=== PATIENT | male | born 1945 | race Caucasian/White ===

== ENCOUNTER 2021-04-11 07:11 | Day surgery (SDC) | payer OTHER ==
[2021-03-28 11:47] LABS: BASOPHILS % (AUTO) 0.9 % (0.0-5.0); EOSINOPHILS % (AUTO) 3.8 % (0.0-8.0); HEMATOCRIT 48.5 % (42-54); LYMPHOCYTES % (AUTO) 23.4 % (21.0-51.0); MEAN CORPUSCULAR HGB CONC 32.8 g/dL (32.0-36.0); MEAN CORPUSCULAR VOLUME 94.5 fL (79-99); MONOCYTES % (AUTO) 8.4 % (3.0-13.0); NEUTROPHILS % (AUTO) 63.4 % (40.0-77.0); PLATELET COUNT (AUTO) 258 K/uL (130-400); RED BLOOD CELL COUNT(AUTO) 5.13 MIL/uL (4.50-6.20); RED CELL DISTRIBUTION WIDTH 13.7 % (11.0-15.5); WHITE BLOOD COUNT (AUTO) 8.1 K/uL (4.8-10.8)
[2021-03-28 13:27] LABS: INR 1.03 (0.85-1.15); PROTHROMBIN TIME 11.2 SEC (9.6-11.6)
[2021-03-28 13:28] LABS: PARTIAL THROMBOPLASTIN TIME 27.6 SEC (26.3-35.5)
[2021-04-10 13:27] VITALS: BP 141/70
[~2021-04-11] VITALS: Ht 165.1 cm; Wt 58.3 kg
[~2021-04-11 07:11] MED LIST: ASPI-1197 PO; CEFAZOLIN SODIUM 1 GM VIAL IVP SCH
[2021-04-11 07:48] VITALS: BP 133/66
[2021-04-11] MEDS ORDERED: LACTATED RINGERS 1000ML 1,000 ML IV ONE (08:17)
== END 2021-04-11 11:00 | disposition home or self-care (01) ==
LOC: DAH 07:11
PROVIDERS: ATTEND Otolaryngology Plastic Surgery within the Head & Neck
DX: C44.42 Squamous cell carcinoma of skin of scalp and neck (principal); Z20.822 Contact with and (suspected) exposure to COVID-19; C44.310 Basal cell carcinoma of skin of unspecified parts of face; C44.311 Basal cell carcinoma of skin of nose; Z79.01 Long term (current) use of anticoagulants; Z53.8 Procedure and treatment not carried out for other reasons
CPT/HCPCS: 36415; 85025; 85610; 85730; 87635; 93005; A4215; A4221; A4222; A4223; A4663; C9803; J0690; J7120

== ENCOUNTER → 2023-12-24 | Outpatient (CLI) | payer OTHER ==
[~2023-12-24] MED LIST changes: -CEFAZOLIN SODIUM 1 GM VIAL IVP SCH; +IOHEXOL 350 MG/ML 100ML INFUS..BTL IV ONE
== END | disposition home or self-care (01) ==
LOC: RAH 08:40
PROVIDERS: ATTEND Internal Medicine Cardiovascular Disease
DX: I71.40 Abdominal aortic aneurysm, without rupture, unspecified (principal); N43.2 Other hydrocele; K57.32 Diverticulitis of large intestine without perforation or abscess without bleeding; I70.0 Atherosclerosis of aorta
CPT/HCPCS: 74174; Q9967

== ENCOUNTER → 2024-06-02 | Outpatient (CLI) | payer OTHER ==
[~2024-06-02] MED LIST changes: +AMLO-257 PO; +CLOP-31 PO; -IOHEXOL 350 MG/ML 100ML INFUS..BTL IV ONE
== END | disposition home or self-care (01) ==
LOC: SHCH 09:33
PROVIDERS: ATTEND Internal Medicine Cardiovascular Disease
DX: I87.2 Venous insufficiency (chronic) (peripheral) (principal); I87.1 Compression of vein; I73.9 Peripheral vascular disease, unspecified
CPT/HCPCS: 93970

== ENCOUNTER 2025-07-13 05:33 | Observation (INO) | payer OTHER ==
[~2025-07-13] VITALS: Ht 162.6 cm; Wt 63.5 kg
--- NOTE | 2025-07-13 05:54 | NUR ---
BLADDER SCANNER READING >830CC, ED MADE AWARE
--- NOTE | 2025-07-13 06:12 | ERN ---
ED Note History of Present Illness Stated Complaint: C/O URINARY RETENTION WITH CONSTIPATION X 24 HRS Chief Complaint: Urinary Retention Time Seen by MD: 05:38 Dictation: Patient is 80-year-old male who presented to the ER complaining of constipation, urinary retention. He stated that he has been constipated for few days, he last normal bowel movement was 4 days ago, he had been having urinary retention as though in the last 4 days, but it has got worse last night. On initial workup in the ER, ultrasound of bladder was positive for urinary retention more than 400 cc. Allergies: Coded Allergies: tetracycline (Verified Allergy, Unknown, 03/28/21) Home Meds Active Scripts Tamsulosin HCl (Flomax) 0.4 Mg Cap.er.24h, 1 CAP PO DAILY for 10 Days, #10 CAP 0 Refills Prov:FREDA BERMUDEZ MD 07/13/25 Amlodipine Besylate (Amlodipine Besylate) 5 Mg Tablet, 5 MG PO DAILY for 30 Days, #30 TAB 1 Refill Prov:LANCE CATHERINE MD 02/23/24 Amlodipine Besylate (Amlodipine Besylate) 5 Mg Tablet, 5 MG PO DAILY for 30 Days, #30 TAB 1 Refill Prov:LANCE CATHERINE MD 02/23/24 Clopidogrel Bisulfate (Plavix) 75 Mg Tablet, 75 MG PO DAILY for 30 Days, #30 TAB 1 Refill Prov:LANCE CATHERINE MD 02/23/24 Reported Medications Aspirin (Aspirin) 81 Mg Tab.chew, 81 MG PO DAILY, TAB.CHEW 04/10/21 Past Medical History Past Medical History: Other Additional Past Medical Hx: PROSTATE PROBLEM Surgical History: Unknown Surgical History Other: X1 STENT RLE Review of System Dictation NEGATIVE EXCEPT PER HPI Constitutional: Negative for fever,chills, and weight loss Eyes: Negative for injury, pain,redness, and discharge ENT: Negative for injury,pain or swelling Cardiovascular: denies chest pain, palpitations, and edema Respiratory: Negative for shortness of breath, cough, and wheezing, Abdomen/GI: Negative for abdominal pain, nausea, vomiting. He does reports constipation Back: Negative for injury and pain : Negative for injury, bleeding and discharge during his also reports urinary retention MS/Extremity: Negative for injury and deformity Skin: Negative for rash, and discoloration Neuro: Negative for headache, weakness, numbness, tingling, and seizure Psych: Negative for suicide ideation, homicidal ideation, and hallucinations Initial Vital Sign VS Vital Signs Date Time Temp Pulse Resp B/P (MAP) Pulse Ox O2 Delivery O2 Flow Rate FiO2 07/13/25 05:35 97.5 101 20 186/88 95 Room Air 07/13/25 05:52 0 21 Physical Exam Dictation General: awake, alert, NAD Head/Face: Normocephalic, atraumatic Eyes: PERRL, EOMI, vision at baseline ENT: oral cavity clear, TMs clear, no signs of infection Neck: Trachea midline, supple, no nuchal rigidity Cardiovascular: RRR, normal S1/S2, No MRGs, no JVD Respiratory: CTAB, no respiratory distress, No rales or wheezes Abdomen: No tender, Skin: Warm, dry, normal turgor, no rash MS/Extremity: Pulses equal, no cyanosis, neurovascular intact, FROM Neuro: COAx4, GCS 15, strength 5/5, CN 2-12 intact, normal cerebellar exam, normal gait, Psych: Normal behavior, mood, and affect normal Results (Laboratory/Radiology) Laboratory/Radiology Laboratory Tests Test 07/13/25 05:58 07/13/25 06:09 Urine Color YELLOW (YELLOW) Urine Appearance CLEAR (CLEAR) Urine pH 5.0 (5.0-8.0) Urine Specific [place] 1.021 (1.001-1.031) Urine Protein NEGATIVE mg/dL (NEGATIVE) Urine Glucose (UA) NEGATIVE mg/dL (NEGATIVE) Urine Ketones 10 mg/dL (NEGATIVE) H Urine Occult Blood NEGATIVE (NEGATIVE) Urine Nitrate NEGATIVE (NEGATIVE) Urine Bilirubin NEGATIVE mg/dL (NEGATIVE) Urine Urobilinogen 0.2 mg/dL (0.2-1.0) Urine Leukocyte Esterase NEGATIVE Tatiana/uL Urine RBC 2-5 /HPF (0-1) H Urine WBC 0-1 /HPF (0-1) Urine Bacteria RARE /HPF (None Seen) White Blood Count 9.3 K/uL (4.8-10.8) Red Blood Count 4.75 MIL/uL (4.50-6.20) Hemoglobin 14.8 g/dL (14.0-18.0) Hematocrit 44.7 % (42-54) Mean Corpuscular Volume 94.1 fL (79-99) Mean Corpuscular Hemoglobin 31.2 pg (27.0-33.0) Mean Corpuscular Hemoglobin Concent 33.1 g/dL (32.0-36.0) Red Cell Distribution Width 13.9 % (11.0-15.5) Platelet Count 240 K/uL (130-400) Mean Platelet Volume 10.6 fL (7.5-10.5) H Immature Granulocyte % (Auto) 0.4 % (0-1) Neutrophils (%) (Auto) 86.7 % (40.0-77.0) H Lymphocytes (%) (Auto) 7.0 % (21.0-51.0) L Monocytes (%) (Auto) 5.5 % (3.0-13.0) Eosinophils (%) (Auto) 0.1 % (0.0-8.0) Basophils (%) (Auto) 0.3 % (0.0-5.0) Neutrophils # (Auto) 8.1 K/uL (1.8-7.7) H Lymphocytes # (Auto) 0.7 K/uL (1.0-4.8) L Monocytes # (Auto) 0.5 K/uL (0.1-1.0) Eosinophils # (Auto) 0.01 K/uL (0.00-0.70) Basophils # (Auto) 0.03 K/uL (0.00-0.20) Absolute Immature Granulocyte (auto 0.04 K/uL (0-1) Nucleated Red Blood Cells 0.0 % (0.0-0.19) White Cell Morphology Comment See comments Sodium Level 141 mmol/L (136-145) Potassium Level 4.6 mmol/L (3.5-5.1) Chloride Level 102 mmol/L (101-111) Carbon Dioxide Level 31 mmol/L (21-32) Blood Urea Nitrogen 23 mg/dL (7-18) H Creatinine 0.9 mg/dL (0.5-1.3) Glomerular Filtration Rate Calc 85 mL/min (>90) Random Glucose 109 mg/dL (70-105) H Total Calcium 9.6 mg/dL (8.5-10.1) Labs Reviewed?: Yes ED Course ED Course Orders Procedure Category Date Status Time Nurse Driven Riley HE 07/13/25 In Process Removal Pro 05:53 Urinalysis Profile LAB 07/13/25 Complete Catherized 05:53 Basic Metabolic Panel LAB 07/13/25 Complete 05:54 Abd 1vw RAD 07/13/25 Resulted 05:54 Cbc With Differential LAB 07/13/25 Complete 05:55 [place] Enema(0500, CPOE 07/13/25 Transmitted 2100) 06:58 Vital Signs Date Time Temp Pulse Resp B/P (MAP) Pulse Ox O2 Delivery O2 Flow Rate FiO2 07/13/25 07:56 98.1 87 16 148/68 97 Room Air* 0 21 07/13/25 06:13 82 18 148/68 94 Room Air* 0 21 07/13/25 05:52 97.5 88 20 166/79 95 Room Air* 0 21 07/13/25 05:35 97.5 101 20 186/88 95 Room Air Medical Decision Making MDM 80-year-old male with constipation and urinary retention. Urinary retention -Lin placed -BMP to check kidney function Constipation -KUB x-ray MDM: Differential diagnosis: Rationale: Tests considered and ordered secondary to shared decision making include: labs, ECG and radiology Previous outside records reviewed: Old ER visits. Risk of complication and/or morbidity or mortality of patient management: None Medications-Per medication reconciliation Need for hospitalization: Patient does meet criteria for hospitalization. Need for emergency major/minor surgery: No There are no social concerns with this patient. Prescription drug management Prescriptions will include symptomatic care Patient's prior external medical records from other ER visits were reviewed by me as indicated. Prior testing and results from previous visits were reviewed. Prior tests were taken into account with medical decision making and resource utilization, independent historian/historians were used to obtain complete medical history. I independently interpreted the test that were performed, results were reviewed by me and considered findings on radiology if ordered. Medical management and examination interpretation discussions were had by me with other qualified healthcare professionals as indicated for the patient's care. 80-year-old male with prostate enlargement acute urinary retention and able to see Urology in the outpatient setting Lin was placed drained over a 1000 cc of urine and admitting for further care and evaluation DX & DISP Disposition: Inpatient Departure Impression: Primary Impression: Acute urinary retention Condition: Stable Scripts Tamsulosin HCl (Flomax) 0.4 Mg Cap.er.24h 1 CAP PO DAILY for 10 Days, #10 CAP 0 Refills Prov: FREDA BERMUDEZ MD 07/13/25 Referrals: OCHOA QUINTERO (PCP) ULYSSES LITTLEJOHN MD, WAGNER J MD Jul 13, 2025 06:12 FREDA BERMUDEZ MD Jul 13, 2025 07:59
[2025-07-13 06:40] LABS: IMMATURE GRANULOCYTE ABSOLUTE 0.04 K/uL (0-1); NUCLEATED RED BLOOD CELLS 0.0 % (0.0-0.19); PLATELET COUNT (AUTO) 240 K/uL (130-400); RED BLOOD CELL COUNT(AUTO) 4.75 MIL/uL (4.50-6.20); RED CELL DISTRIBUTION WIDTH 13.9 % (11.0-15.5); WHITE BLOOD COUNT (AUTO) 9.3 K/uL (4.8-10.8)
[2025-07-13 06:45] LABS: APPEARANCE,URINE CLEAR (CLEAR); GLUCOSE, URINE (UA) NEGATIVE (NEGATIVE); LEUKOCYTE ESTERASE ,URINE NEGATIVE Leu/uL (NEGATIVE); NITRATE,URINE NEGATIVE (NEGATIVE); OCCULT BLOOD,URINE NEGATIVE (NEGATIVE)
[2025-07-13 06:49] LABS: ADD UA MICROSCOPIC YES
[2025-07-13 06:49] LABS: CREATININE 0.9 mg/dL (0.5-1.3); GLOMERULAR FILTR. RATE CALC 85.0 mL/min (>90); GLUCOSE,RANDOM 109.0 mg/dL (70-105); SODIUM SERUM 141.0 mmol/L (136-145); UREA NITROGEN, BLOOD 23.0 mg/dL (7-18)
--- NOTE | 2025-07-13 07:50 | HMCIMG ---
EXAM: CR Abdomen, 1 View. CLINICAL HISTORY: constipation severe COMPARISON: None provided. FINDINGS: BOWEL: The bowel gas pattern is within normal limits. Mildly prominent amount of fecal material within the colon most notable within the transverse and descending colon consistent with fecal stasis. PERITONEUM/SOFT TISSUES: No free air evident. No pathologic appearing calcification. BONES: No aggressive appearing osseous lesion seen. IMPRESSION: Colonic fecal stasis. No other acute abdomen process. /[place]
[2025-07-13] MEDS ORDERED: TAMS-55 PO (07:58)
[2025-07-13 10:15] LABS: INR 1.03 (0.85-1.15)
[2025-07-13] MEDS: 0.9%NACL 1000ML 1,000 ML IV SCH (10:50)
--- NOTE | 2025-07-13 11:00 | HMCIMG ---
CT ABDOMEN/PELVIS W/O CONTRAST REASON: urinary rentions, constipation COMPARISON: None. FINDINGS: Lung bases demonstrate atelectasis seen in both lung bases.. There is coronary calcification suggesting of coronary artery disease.. There are no focal liver lesions. There are normal-appearing kidneys.. Spleen and pancreas appear unremarkable. The gallbladder appears normal as well. Bowel loops appear unremarkable. This includes normal appearance of the appendix there are scattered diverticulosis mostly in the sigmoid colon. There is no evidence of free fluid or intraperitoneal air. There are no focal fluid collections. Aorta has atherosclerotic change with calcified plaque with no evidence of any aneurysmal dilatation. There is a vascular stent seen in the right iliac vein. The retroperitoneum appear normal as do pelvic soft tissue structures. The anterior abdominal wall is intact. Osseous structures appear unremarkable. There is mild disc disease with loss of disc height at L4-5 L5-S1 and L1-L2. The urinary bladder is decompressed with Lin catheter in place. IMPRESSION: 1. Negative noncontrast CT abdomen and pelvis. 2. Lin catheter in urinary bladder 3. Other findings as described above. CT was performed with one or more following dose reduction techniques: automated exposure control, adjustment of the mA and kv according to patient's size, or use of a iterative reconstruction technique.
--- NOTE | 2025-07-13 11:09 | NUR ---
CALLED [id number] AND SPOKE TO YENY FOR REPORT, PENDING CALL BACK PATIENT RESTING IN BED, CALL LIGHT IN REACH
--- NOTE | 2025-07-13 11:14 | HP ---
[facility] HISTORY AND PHYSICAL Date of Service: Jul 13, 2025 Time of Service: 11:14 HISTORY OF PRESENT ILLNESS: 80-year-old male with past medical history of hypertension, peripheral vascular disease, BPH who presented to the hospital secondary to decreased urination. Patient states for the past 2-3 days he noted that his oral intake had decreased. Additionally noted that he was having decreased urinary output. He felt constipated without any bowel movement. He was passing flatus and denied any nausea, vomiting. Complained of abdominal distention with pain in the suprapubic area. Denied any falls, syncopal episode, chest pain, shortness of breath. He is being followed by his primary care provider in [place]. His [place] provider had referred him to a urologist who had seen him. There was a plan for possible prostate biopsy in October. The patient states it was taking too long to get the procedure done. Denied any dysuria, hematuria. Denied any falls, syncopal episode. Labs in the ED were notable for white count of 9.3, hemoglobin was 14.8, platelet count was 240 K, sodium was 141, potassium was 4.6, BUN was , creatinine was 0.9, blood glucose was 109 Underwent abdominal x-ray which showed colonic fecal stasis. While in the ED patient was noted to have urinary retention. He has a Lin catheter placed subsequently which drained around a 1 L of urine. The patient requested to be evaluated by urologist. Patient also received enema and he had a subsequent bowel movement while in the ED. REVIEW OF SYSTEMS CONSTITUTIONAL: Denies fevers, chills, or night sweats. No unintentional weight loss reported. NEUROLOGICAL: Denies headache, amaurosis fugax, motor weakness, sensory deficit, vertigo/spinning sensation, gait abnormalities, or tremors. ENT: No hearing loss, otalgia, otorrhea, rhinitis, rhinorrhea, hoarseness, or sore throat. CARDIOVASCULAR: Denies any exertional angina, dyspnea on exertion, orthopnea, paroxysmal nocturnal dyspnea, palpitations, life-threatening arrhythmias, claudication. PULMONARY: Denies any shortness of breath, cough, phlegm/sputum, hemoptysis, pleuritic chest pain. SLEEP: Denies morning headaches, daytime somnolence or napping. Denies difficulty falling asleep, staying asleep, waking from sleep. Denies knowledge of snoring. GASTROINTESTINAL: Denies any type of dysphagia to either liquids or solids. Denies nausea, vomiting, pyrosis, early satiety, abdominal pain, diarrhea, or changes in stool consistency or caliber. Denies coffee-ground emesis, hematemesis, hematochezia, or melanotic stools. Positive for constipation GENITOURINARY: Denies frequency, urgency, nocturia, hematuria or incontinence (Storage/Irritative symptoms.) Low urinary stream, straining to void, urinary intermittency or hesitancy, splitting of the voiding stream, terminal dribbling. ENDOCRINOLOGIC: Denies polyuria, polydipsia, polyphagia or heat/cold intolerances. HEMATOLOGIC: Denies thrombophilia/previous clots, or coagulopathy/bleeding disorders. ONCOLOGIC: Denies personal history of malignancy. DERMATOLOGIC: Denies rashes or pruritus. PSYCHIATRIC: Denies any suicidal or homicidal ideation. Denies hallucinations. PAST MEDICAL HISTORY: Hypertension, peripheral vascular disease, BPH PAST SURGICAL HISTORY: History of peripheral angiogram PAST SOCIAL HISTORY: He is a former smoker. Quit more than one year ago. He drinks once daily. He also occasionally uses cannabis. FAMILY HISTORY: Denied any pertinent family history Coded Allergies: tetracycline (Verified Allergy, Unknown, 03/28/21) PHYSICAL EXAM GENERAL APPEARANCE: The patient is awake, alert, and oriented, in no acute cardiopulmonary distress. NEUROLOGICAL: Cranial nerves II-XII grossly intact. Motor is 5/5 in bilateral upper and lower extremities proximal to distal. No sensory deficits. HEENT: Face is symmetric. Pupils are equal and reactive. Extraocular movements are intact. NECK: Supple. No JVD. No thyromegaly. No submental, submandibular, pre- /postauricular, occipital or supraclavicular lymphadenopathy. CHEST: Normal chest expansion. No Telemetry. LUNGS: Absence of any rales, rhonchi or any wheezing. CARDIOVASCULAR: Regular. S1 and S2 normal. No appreciable rubs, murmurs or gallops. ABDOMEN: Soft, nontender, and nondistended. There is no rebound, voluntary guarding, or rigidity. : Deferred. Patient has a Lin catheter present. EXTREMITIES: Non-edematous and not cyanotic. No clubbing. Good capillary refill. SKIN: No skin breakdown. Vital Sign (Last 24 Hours) 07/13/25 07:56 Temp 98.1 Pulse 87 Resp 16 B/P (MAP) 148/68 Pulse Ox 97 O2 Delivery Room Air* O2 Flow Rate 0 FiO2 21 Intake & Output (last 24hrs) 07/12/25 07/12/25 07/13/25 15:00 23:00 07:00 Output Total 1000 ml Balance -1000 ml LABS: Laboratory: Test 07/13/25 06:09 07/13/25 05:58 Range/Units White Blood Count 9.3 4.8-10.8 K/uL Red Blood Count 4.75 4.50-6.20 MIL/uL Hemoglobin 14.8 14.0-18.0 g/dL Hematocrit 44.7 42-54 % Mean Corpuscular Volume 94.1 79-99 fL Mean Corpuscular Hemoglobin 31.2 27.0-33.0 pg Mean Corpuscular Hemoglobin Concent 33.1 32.0-36.0 g/dL Red Cell Distribution Width 13.9 11.0-15.5 % Platelet Count 240 130-400 K/uL Mean Platelet Volume 10.6 H 7.5-10.5 fL Immature Granulocyte % (Auto) 0.4 0-1 % Neutrophils (%) (Auto) 86.7 H 40.0-77.0 % Lymphocytes (%) (Auto) 7.0 L 21.0-51.0 % Monocytes (%) (Auto) 5.5 3.0-13.0 % Eosinophils (%) (Auto) 0.1 0.0-8.0 % Basophils (%) (Auto) 0.3 0.0-5.0 % Neutrophils # (Auto) 8.1 H 1.8-7.7 K/uL Lymphocytes # (Auto) 0.7 L 1.0-4.8 K/uL Monocytes # (Auto) 0.5 0.1-1.0 K/uL Eosinophils # (Auto) 0.01 0.00-0.70 K/uL Basophils # (Auto) 0.03 0.00-0.20 K/uL Absolute Immature Granulocyte (auto 0.04 0-1 K/uL Nucleated Red Blood Cells 0.0 0.0-0.19 % White Cell Morphology Comment See comments Prothrombin Time 10.9 9.6-11.6 SEC Prothromb Time International Ratio 1.03 0.85-1.15 Activated Partial Thromboplast Time 25.6 L 26.3-35.5 SEC Sodium Level 141 136-145 mmol/L Potassium Level 4.6 3.5-5.1 mmol/L Chloride Level 102 101-111 mmol/L Carbon Dioxide Level 31 21-32 mmol/L Blood Urea Nitrogen 23 H 7-18 mg/dL Creatinine 0.9 0.5-1.3 mg/dL Glomerular Filtration Rate Calc 85 >90 mL/min Random Glucose 109 H 70-105 mg/dL Hemoglobin A1c 5.6 4.0-6.0 % Estimated Average Glucose (eAG) 114 70-126 mg/dL Total Calcium 9.6 8.5-10.1 mg/dL Procalcitonin < 0.05 L 0.05-0.5 ng/mL Thyroid Stimulating Hormone (TSH) 1.16 0.36-3.74 uIU/mL Urine Color YELLOW YELLOW Urine Appearance CLEAR CLEAR Urine pH 5.0 5.0-8.0 Urine Specific [place] 1.021 1.001-1.031 Urine Protein NEGATIVE NEGATIVE mg/dL Urine Glucose (UA) NEGATIVE NEGATIVE mg/dL Urine Ketones 10 H NEGATIVE mg/dL Urine Occult Blood NEGATIVE NEGATIVE Urine Nitrate NEGATIVE NEGATIVE Urine Bilirubin NEGATIVE NEGATIVE mg/dL Urine Urobilinogen 0.2 0.2-1.0 mg/dL Urine Leukocyte Esterase NEGATIVE NEGATIVE Tat[place]/uL Urine RBC 2-5 H 0-1 /HPF Urine WBC 0-1 0-1 /HPF Urine Bacteria RARE None Seen /HPF Current Medications Medications (Trade) Dose Ordered Sig/Sally Route PRN Reason Start Time Stop Time Status Last Admin Dose Admin Acetaminophen (TYLenol 500MG TAB) 500 mg Q6H PRN PO MILD PAIN (1-3) 07/13/25 10:00 08/12/25 09:59 Famotidine (Pepcid 20mg Vial) 20 mg BID IV 07/13/25 21:00 08/12/25 20:59 Hydralazine HCl (APRESOLine 20MG INJ) 10 mg Q6H PRN IV ADMINISTER FOR SBP > 180 07/13/25 10:00 08/12/25 09:59 Sodium Chloride 1,000 ml @ 100 mls/hr Q10H IV 07/13/25 10:00 08/12/25 09:59 07/13/25 10:50 100 MLS/HR DIAGNOSTICS / RADIOLOGY: [ ] ASSESSMENT: Urinary retention status post Lin catheter placement Constipation BPH Hypertension Peripheral vascular disease Hyperlipidemia PLAN: - patient to be admitted to medical-surgical unit -in reference to urinary retention. Patient will continue with the Lin catheter. We will also obtain a CT abdomen pelvis. We will request consultation with Urology -patient to be started on NS for gentle hydration -patient home medications will be obtained and reconciled once available. -further orders per hospitalization. Advanced Care Planning Which of the following were discussed: Hospice care: Yes __ No _x_ Therapeutic options: Yes __ No __ Advance directives: Yes __ No __ Other discussions: Discussed with who?: patient (Patient, family or surrogates) Voluntary nature of this service was explained to the patient? Yes x__ No __ Amount of time spent: 20 minutes NIKKI Arevalo MD, MD Jul 13, 2025 11:14
--- NOTE | 2025-07-13 11:24 | NUR ---
REPORT GIVEN TO SUNSH[facility] LVN SENT UP WITH PATIENT
[2025-07-13 12:00] VITALS: BP 152/71; PULSE 71; RESP 18; TEMP 97.7
[2025-07-13] MEDS ORDERED: PoTASSium chl 10% ELIXIR 20MEQ 20 MEQ/15 ML UDCUP PO PRN (12:00)
[2025-07-13] MEDS ORDERED: MAGNESIUM 2GM PREMIX 50ML 50 ML IV PRN (12:00)
[2025-07-13 16:00] VITALS: BP 129/58; PULSE 76; RESP 18; TEMP 97.9
[2025-07-13 19:45] VITALS: O2SAT 93
[2025-07-13 20:00] VITALS: BP 127/63; PULSE 78; RESP 22; TEMP 98.5
--- NOTE | 2025-07-13 20:38 | CONS ---
CONSULTATION NOTE Date of Service: Jul 13, 2025 Reason for Consultation: Acute urinary retention Requesting Physician: Darek Brothers MD HISTORY OF PRESENT ILLNESS: 80-year-old man who baseline BPH and lower urinary tract symptoms, have not taking the tamsulosin for multiple years noticed over the past several days that his urinary output was decreasing. Was experiencing difficulty initiating a urinary stream. The last two days he has not voided all which was associated with suprapubic pain and discomfort. In addition to that for the past three days he has not had a bowel movement. Presented to the emergency department for evaluation. He has been seen and taken care of by a urologist at the [facility] here in [place], he was recommended for prostate biopsy and he was pending a referral to community urologist. In the emergency department he had imaging including a CT scan abdomen and pelvis without contrast which showed a decompressed bladder since Lin catheter was already inserted. Bladder wall was thickened. Prostate was prominent. He was admitted to the floor for supportive care with a urological consult. REVIEW OF SYSTEMS CONSTITUTIONAL: Denies fever, chills, or fatigue. HEAD/FACE: No signs of trauma. EENT: Denies eye pain, blurred vision, double vision, or light sensitivity. RESPIRATORY: Denies shortness of breath, cough, wheezing CARDIOVASCULAR: Denies chest pain, palpitation, syncope GASTROINTESTINAL/ABDOMINAL: Denies abdominal pain, constipation, diarrhea, nausea or vomiting GENITOURINARY: Urinary retention MUSCULOSKELETAL: Denies joint pain, tenderness, or trauma. INTEGUMENTARY: Denies rash or itchiness NEUROLOGICAL/PSYCH: Denies anxiety, depression, heat or cold intolerance. PAST MEDICAL HISTORY: BPH/peripheral vascular disease/hypertension PAST SURGICAL HISTORY: Peripheral angiogram PAST SOCIAL HISTORY: Former smoker, quit about a year ago. Drinks every day. Uses cannabis FAMILY HISTORY: Noncontributory to presenting complaint Coded Allergies: tetracycline (Verified Allergy, Unknown, 03/28/21) PHYSICAL EXAM EYES: Anicteric. Pupils equal and reactive. HENT: No oral thrush seen, moist Oral mucosa NECK: Supple, no JVD or thyromegaly. LUNGS: Good air entry. No rales, no rhonchi. CARDIOVASCULAR: S1, S2 regular. No murmur heard. ABDOMEN: Soft, non tender, bowel sounds present, no organomegaly CENTRAL NERVOUS SYSTEM: Awake, alert, oriented x 3. No focal deficits. SKIN: No rashes, no swelling. LYMPHATICS: No peripheral lymphadenopathy MUSCULOSKELETAL: No joint swelling, erythema or tenderness. EXTREMITIES: No cyanosis or clubbing BACK: No deformity, no pressure ulcer. GENITOURINARY: Lin catheter is in place draining clear urine Vital Sign (Last 24 Hours) 07/13/25 07/13/25 11:29 16:00 Temp 97.9 Pulse 76 Resp 18 B/P (MAP) 129/58 Pulse Ox 94 O2 Delivery Room Air O2 Flow Rate 0 FiO2 21 Intake & Output (last 24hrs) 07/12/25 07/12/25 07/13/25 15:00 23:00 07:00 Output Total 1000 ml Balance -1000 ml LABS: Laboratory: Test 07/13/25 06:09 07/13/25 05:58 Range/Units White Blood Count 9.3 4.8-10.8 K/uL Red Blood Count 4.75 4.50-6.20 MIL/uL Hemoglobin 14.8 14.0-18.0 g/dL Hematocrit 44.7 42-54 % Mean Corpuscular Volume 94.1 79-99 fL Mean Corpuscular Hemoglobin 31.2 27.0-33.0 pg Mean Corpuscular Hemoglobin Concent 33.1 32.0-36.0 g/dL Red Cell Distribution Width 13.9 11.0-15.5 % Platelet Count 240 130-400 K/uL Mean Platelet Volume 10.6 H 7.5-10.5 fL Immature Granulocyte % (Auto) 0.4 0-1 % Neutrophils (%) (Auto) 86.7 H 40.0-77.0 % Lymphocytes (%) (Auto) 7.0 L 21.0-51.0 % Monocytes (%) (Auto) 5.5 3.0-13.0 % Eosinophils (%) (Auto) 0.1 0.0-8.0 % Basophils (%) (Auto) 0.3 0.0-5.0 % Neutrophils # (Auto) 8.1 H 1.8-7.7 K/uL Lymphocytes # (Auto) 0.7 L 1.0-4.8 K/uL Monocytes # (Auto) 0.5 0.1-1.0 K/uL Eosinophils # (Auto) 0.01 0.00-0.70 K/uL Basophils # (Auto) 0.03 0.00-0.20 K/uL Absolute Immature Granulocyte (auto 0.04 0-1 K/uL Nucleated Red Blood Cells 0.0 0.0-0.19 % White Cell Morphology Comment See comments Prothrombin Time 10.9 9.6-11.6 SEC Prothromb Time International Ratio 1.03 0.85-1.15 Activated Partial Thromboplast Time 25.6 L 26.3-35.5 SEC Sodium Level 141 136-145 mmol/L Potassium Level 4.6 3.5-5.1 mmol/L Chloride Level 102 101-111 mmol/L Carbon Dioxide Level 31 21-32 mmol/L Blood Urea Nitrogen 23 H 7-18 mg/dL Creatinine 0.9 0.5-1.3 mg/dL Glomerular Filtration Rate Calc 85 >90 mL/min Random Glucose 109 H 70-105 mg/dL Hemoglobin A1c 5.6 4.0-6.0 % Estimated Average Glucose (eAG) 114 70-126 mg/dL Total Calcium 9.6 8.5-10.1 mg/dL Procalcitonin < 0.05 L 0.05-0.5 ng/mL Thyroid Stimulating Hormone (TSH) 1.16 0.36-3.74 uIU/mL Urine Color YELLOW YELLOW Urine Appearance CLEAR CLEAR Urine pH 5.0 5.0-8.0 Urine Specific [place] 1.021 1.001-1.031 Urine Protein NEGATIVE NEGATIVE mg/dL Urine Glucose (UA) NEGATIVE NEGATIVE mg/dL Urine Ketones 10 H NEGATIVE mg/dL Urine Occult Blood NEGATIVE NEGATIVE Urine Nitrate NEGATIVE NEGATIVE Urine Bilirubin NEGATIVE NEGATIVE mg/dL Urine Urobilinogen 0.2 0.2-1.0 mg/dL Urine Leukocyte Esterase NEGATIVE NEGATIVE Tatiana/uL Urine RBC 2-5 H 0-1 /HPF Urine WBC 0-1 0-1 /HPF Urine Bacteria RARE None Seen /HPF DIAGNOSTICS / RADIOLOGY: CT abdomen and pelvis without contrast dated 07/13/2025 showed a decompressed bladder with a Lin catheter was placed. Prostate is prominent. ASSESSMENT: 80-year-old man presents to the hospital secondary to urinary retention. PLAN: 1. We believe that he has been dealing with BPH and outflow obstruction taking tamsulosin and is now progressing beyond medical therapy. Chronic constipation over the last three days possibly aggravated the pressure on the bladder neck. 2. He had a ROSA with a urologist at the [facility] and he was recommended for prostate biopsy 3. Keep the Lin catheter in place for now, resume tamsulosin. 4. Patient would need ambulatory management. He is more than welcome to see us in the office in [place] for further management and planning We spent 60 minutes complete this consult more than half of the time spent at bedside in counseling and coordination of care and addressing questions posed by patient, some time was spent discussing with members of his care team. The rest of the time was spent reviewing medical records. ULYSSES LITTLEJOHN MD Jul 13, 2025 20:37
[2025-07-13] MEDS: FAMOTIDINE 20MG VIAL IV SCH (21:10)
[2025-07-14] VITALS: BP 131/61; PULSE 79; RESP 20; TEMP 97.9
[2025-07-14 04:00] VITALS: BP 137/66; PULSE 82; RESP 20; TEMP 99.1
[2025-07-14 07:04] LABS: IMMATURE GRANULOCYTE ABSOLUTE 0.04 K/uL (0-1); NUCLEATED RED BLOOD CELLS 0.0 % (0.0-0.19); PLATELET COUNT (AUTO) 197 K/uL (130-400); RED BLOOD CELL COUNT(AUTO) 4.09 MIL/uL (4.50-6.20); RED CELL DISTRIBUTION WIDTH 14.0 % (11.0-15.5); WHITE BLOOD COUNT (AUTO) 10.9 K/uL (4.8-10.8)
[2025-07-14 07:14] LABS: CREATININE 0.8 mg/dL (0.5-1.3); GLOMERULAR FILTR. RATE CALC 88.0 mL/min (>90); GLUCOSE,RANDOM 88.0 mg/dL (70-105); SODIUM SERUM 138.0 mmol/L (136-145); UREA NITROGEN, BLOOD 12.0 mg/dL (7-18)
[2025-07-14 07:49] VITALS: O2SAT 90
[2025-07-14 07:55] VITALS: BP 133/62; PULSE 78; RESP 18; TEMP 98.7
[2025-07-14] MEDS: PoTASSium chloRIDE 20MEQ ER 20 MEQ ERTAB PO PRN (11:22)
[2025-07-14 11:34] VITALS: BP 126/66; PULSE 76; RESP 18; TEMP 99.2
[2025-07-14 15:28] VITALS: BP 135/65; PULSE 81; RESP 18; TEMP 98.7
--- NOTE | 2025-07-14 16:27 | DS ---
Discharge Summary Hospital Course Summary: The patient is a 80-year-old male with a past medical history of hypertension, peripheral vascular disease, benign prostatic hypertrophy who presented to the emergency department secondary to decreased urination. Patient stated that for the past 3 days before arrival he noted that his oral intake had decreased. Additionally he also noted that he was having decreased urinary output with constipation. He was passing flatus but denied any nausea and vomiting. The patient also complained of abdominal distention with pain in the suprapubic area. In the emergency department labs were notable for a white blood cell count of 9.3, hemoglobin of 14.8, platelets of 240 K, sodium of 141, potassium of 4.6, BUN of, creatinine of 0.9, blood glucose of 109. The patient underwent an abdominal x-ray which showed colonic fecal stasis. He was noted to be having acute urinary retention and had a Lin catheter placed which drained around 1.5 L of urine. Regarding his constipation patient also received enema and had a subsequent bowel movement while in the emergency department. The patient was admitted to the hospitalist service for further evaluation on 07/13/2025. Regarding his urinary symptoms urology was consulted, who recommended the patient to be continued on his Lin's after discharge and following up as an outpatient for long-term management. Patient's labs and vitals were unremarkable throughout his hospitalization. By 07/14/2025, the patient showed significant clinical and hemodynamic improvement and denied any active problems. Based on a shared decision-making model the decision was made to discharge the patient home with advice to follow up with Urology regarding his BPH. He will be sent home on the Lin's with instructions on how to take care of the catheter. Orthopedic Shoe Maker(s): Urology ASSESSMENT: 80-year-old man presents to the hospital secondary to urinary retention. PLAN: 1. We believe that he has been dealing with BPH and outflow obstruction taking tamsulosin and is now progressing beyond medical therapy. Chronic constipation over the last three days possibly aggravated the pressure on the bladder neck. 2. He had a ROSA with a urologist at the [facility] and he was recommended for prostate biopsy 3. Keep the Lin catheter in place for now, resume tamsulosin. 4. Patient would need ambulatory management. He is more than welcome to see us in the office in [place] for further management and planning Procedure(s): [facility] [address] [place] [address] [id number] IMAGING REPORT Signed PATIENT: PEGGY DIAZ MR#: [id number] : 1945 SEX: M AGE: 80 LOCATION: [facility] ORDER 0556 STATUS: REG ER REPORT#: [id number] SERVICE 0554 REASON: constipation severe ORDERING PHYSICIAN: DAMIEN RAHCEL MD PROCEDURE: ABD 1VW - ABD 1VW EXAM: CR Abdomen, 1 View. CLINICAL HISTORY: constipation severe COMPARISON: None provided. FINDINGS: BOWEL: The bowel gas pattern is within normal limits. Mildly prominent amount of fecal material within the colon most notable within the transverse and descending colon consistent with fecal stasis. PERITONEUM/SOFT TISSUES: No free air evident. No pathologic appearing calcification. BONES: No aggressive appearing osseous lesion seen. IMPRESSION: Colonic fecal stasis. No other acute abdomen process. /[place] DICTATED BY: SHALOM SPRINGER Jr., MD DATE: 07/13/25849 ELECTRONICALLY SIGNED BY: SHALOM SPRINGER Jr., MD DATE: 07/13/25849 [facility] [address] [place] [address] [id number] IMAGING REPORT Signed PATIENT: PEGGY DIAZ MR#: [id number] : 1945 SEX: M AGE: 80 [facility] ORDER STATUS: ADM IN REPORT#: [id number] SERVICE 1 REASON: urinary rentions, constipation ORDERING PHYSICIAN: NIKKI BROTHERS MD PROCEDURE: ABD PEL WO - CT ABDOMEN/PELVIS W/O CONTRAST CT ABDOMEN/PELVIS W/O CONTRAST REASON: urinary rentions, constipation COMPARISON: None. FINDINGS: Lung bases demonstrate atelectasis seen in both lung bases.. There is coronary calcification suggesting of coronary artery disease.. There are no focal liver lesions. There are normal-appearing kidneys.. Spleen and pancreas appear unremarkable. The gallbladder appears normal as well. Bowel loops appear unremarkable. This includes normal appearance of the appendix there are scattered diverticulosis mostly in the sigmoid colon. There is no evidence of free fluid or intraperitoneal air. There are no focal fluid collections. Aorta has atherosclerotic change with calcified plaque with no evidence of any aneurysmal dilatation. There is a vascular stent seen in the right iliac vein. The retroperitoneum appear normal as do pelvic soft tissue structures. The anterior abdominal wall is intact. Osseous structures appear unremarkable. There is mild disc disease with loss of disc height at L4-5 L5-S1 and L1-L2. The urinary bladder is decompressed with Lin catheter in place. IMPRESSION: 1. Negative noncontrast CT abdomen and pelvis. 2. Lin catheter in urinary bladder 3. Other findings as described above. CT was performed with one or more following dose reduction techniques: automated exposure control, adjustment of the mA and kv according to patient's size, or use of a iterative reconstruction technique. DICTATED BY: MACKENZIE MILLER MD DATE: 07/13/25 1055 ELECTRONICALLY SIGNED BY: MACKENZIE MILLER MD DATE: 07/13/25 1100 Assessment/Plan: ASSESSMENT: Urinary retention status post Lin catheter placement Constipation BPH Hypertension Peripheral vascular disease Hyperlipidemia PLAN: - patient to be admitted to medical-surgical unit -in reference to urinary retention. Patient will continue with the Lin catheter. We will also obtain a CT abdomen pelvis. We will request consultation with Urology -patient to be started on NS for gentle hydration -patient home medications will be obtained and reconciled once available. -further orders per hospitalization. Advanced Care Planning Which of the following were discussed: Hospice care: Yes __ No _x_ Therapeutic options: Yes __ No __ Advance directives: Yes __ No __ Other discussions: Discussed with who?: patient (Patient, family or surrogates) Voluntary nature of this service was explained to the patient? Yes x__ No __ Amount of time spent: 20 minutes Nikki Brothers MD Discharge Instructions: You were admitted with urinary retention and have a history of benign prostatic hypertrophy (BPH). After evaluation, the Urology team recommended that you continue with a Lin catheter, as your BPH he is to advance to be managed with medications at this time. You are now being discharged home with a catheter in place. It is important to keep the catheter and the drainage bag clean, avoid kinking or pulling the tube, and keep the drainage bag below the level of your bladder to allow urine to flow freely. Empty the bag regularly and wash your hands before and after handling it. Please follow up with Urology as an outpatient to discuss long-term management options for your prostate condition, including possible procedures. Seek medical attention right away if you develop fever, chills, lower abdominal pain, catheter blockage (no urine drainage), blood in the urine, or worsening discomfort around the catheter site. Home Medications: Active Scripts Tamsulosin HCl (Flomax) 0.4 Mg Cap.er.24h, 1 CAP PO DAILY for 10 Days, #10 CAP 0 Refills Prov:FREDA BERMUDEZ MD 07/13/25 Discontinued Reported Medications Aspirin (Aspirin) 81 Mg Tab.chew, 81 MG PO DAILY, TAB.CHEW 04/10/21 Discontinued Scripts Amlodipine Besylate (Amlodipine Besylate) 5 Mg Tablet, 5 MG PO DAILY for 30 Days, #30 TAB 1 Refill Prov:LANCE CATHERINE MD 02/23/24 Amlodipine Besylate (Amlodipine Besylate) 5 Mg Tablet, 5 MG PO DAILY for 30 Days, #30 TAB 1 Refill Prov:LANCE CATHERINE MD 02/23/24 Clopidogrel Bisulfate (Plavix) 75 Mg Tablet, 75 MG PO DAILY for 30 Days, #30 TAB 1 Refill Prov:LANCE CATHERINE MD 02/23/24 Continued Medications: Tamsulosin HCl (Flomax) 0.4 Mg Cap.er.24h 1 CAP PO DAILY for 10 Days, #10 CAP 0 Refills Time spent arranging discharge: 1-30 minutes ATTESTATION BY PHYSICIAN I have seen and examined the patient. I reviewed the documentation, medical decision making, and treatment plan as noted by the resident provider above. I agree with the findings and plan of care. Regis Feliciano MD, HEMA MD Jul 14, 2025 16:27
--- NOTE | 2025-07-14 17:33 | NUR ---
Discharge Planning: Pt. states he lives alone. Contact number is for his friend Marlon Aguilar at . PCP is Dr. Alex Denson, and preferred pharmacy is at the [facility]. Pt. states he is independent with all ADL's. No home health, provider services, or DME. No d/c needs at this time. Addendum: 07/14/25 at 1736 by REZA ROJAS RN CM Amended: Links added.
--- NOTE | 2025-07-14 19:10 | NUR ---
DISCHARGE PERIPHERAL IV REMOVED FOR DISCHARGE EDUCATION AND INSTRUCTIONS PROVIDED TO PATIENT PATIENT AWARE TO FOLLOW UP WITH PCP IN 2-3 DAYS PATIENT AWARE TO FOLLOW UP WITH UROLOGY IN 2 WEEKS PATIENT AWARE TO CONTINUE HOME MEDS PRESCRIBED BY MD. ALL QUESTIONS ANSWERED.
[2025-07-16] MEDS ORDERED: ASPI-1012 PO (22:51)
== END 2025-07-14 19:03 | disposition home or self-care (01) ==
LOC: EDH 05:33 → EDHIP 09:52 → INTOOBSV 09:52 → 3BH 11:33
PROVIDERS: ADMIT Internal Medicine; ATTEND Internal Medicine
DX: R33.9 Retention of urine, unspecified (principal); K59.00 Constipation, unspecified; I73.9 Peripheral vascular disease, unspecified; N40.1 Benign prostatic hyperplasia with lower urinary tract symptoms; I10 Essential (primary) hypertension; E78.5 Hyperlipidemia, unspecified; R79.1 Abnormal coagulation profile; Z87.891 Personal history of nicotine dependence; Z79.899 Other long term (current) drug therapy; Z98.890 Other specified postprocedural states
CPT/HCPCS: 99285; 83036; 84443; 80048 ×2; 85025 ×2; 85610; 85730; 81001; 36415 ×2; 74018; 74176; 96374; 84145; 96376; J3490 ×2; G0378 ×3; 99284

== ENCOUNTER 2025-08-02 15:48 | Emergency (ER) | payer OTHER ==
[~2025-08-02] VITALS: Ht 165.1 cm; Wt 61.2 kg
[~2025-08-02 15:48] MED LIST changes: -AMLO-257 PO; +ASPI-1012 PO; -ASPI-1197 PO; -CLOP-31 PO; +LEVO-70 PO; +TAMS-55 PO
[2025-08-02 15:50] VITALS: TEMP 97.2
--- NOTE | 2025-08-02 16:09 | ERN ---
ED Note History of Present Illness Stated Complaint: URINARY RETENTION Chief Complaint: Urinary Catheter Problems Time Seen by MD: 15:56 Dictation: PATIENT IS A 80-YEAR-OLD MALE WITH A HISTORY OF BPH WITH A OBSTRUCTION WITH A HERRMANN CATHETER IN PLACE. [place] [facility] [place]. HE STATES YESTERDAY IT STARTED HAVING DIMINISHING AMOUNTS OF URINE AND THINKS IT MAY BE OCCLUDED. HE IS HAVING MILD SUPRAPUBIC PAIN TENDERNESS NO FEVER NO CHILLS NO NAUSEA VOMITING. Allergies: Coded Allergies: tetracycline (Verified Allergy, Unknown, 03/28/21) Home Meds Active Scripts Levofloxacin (Levofloxacin) 500 Mg Tablet, 1 TAB PO DAILY for 10 Days, #10 TAB 0 Refills Prov:CLINT HARPER APRN 07/21/25 Tamsulosin HCl (Flomax) 0.4 Mg Cap.er.24h, 1 CAP PO DAILY for 10 Days, #10 CAP 0 Refills Prov:FREDA BERMUDEZ MD 07/13/25 Reported Medications Aspirin (ASPIRIN) 325 Mg Tablet, 325 MG PO DAILY, TAB 07/16/25 Past Medical History Past Medical History: Cancer, High Cholesterol, Other Additional Past Medical Hx: BPH Surgical History: Other Surgical History Other: RT LEG STENT RN Note Reviewed/Agreed w/PFSH: Yes Review of System Dictation CONSTITUTIONAL: NEGATIVE EXCEPT FOR HPI HEAD/FACE: NEGATIVE EXCEPT FOR HPI EENT: NEGATIVE EXCEPT FOR HPI RESPIRATORY: NEGATIVE EXCEPT FOR HPI GASTROINTESTINAL/ABDOMINAL: NEGATIVE EXCEPT FOR HPI GENITOURINARY: NEGATIVE EXCEPT FOR HPI DYSFUNCTIONAL HERRMANN CATHETER MUSCULOSKELETAL: NEGATIVE EXCEPT FOR HPI INTEGUMENTARY: NEGATIVE EXCEPT FOR HPI NEUROLOGICAL/PSYCH: NEGATIVE EXCEPT FOR HPI HEMATOLOGIC/LYMPHATIC: NEGATIVE EXCEPT FOR HPI ALL SYSTEMS NEGATIVE, EXCEPT NOTED ABOVE. 13 POINT REVIEW OF SYSTEMS ASSESSED AND ALL NEGATIVE EXCEPT FOR ABOVE. Initial Vital Sign VS Vital Signs Date Time Temp Pulse Resp B/P (MAP) Pulse Ox O2 Delivery O2 Flow Rate FiO2 08/02/25 15:50 97.2 92 16 149/82 97 Room Air 08/02/25 17:56 0 21 Physical Exam Dictation VITAL SIGNS REVIEWED GENERAL APPEARANCE: ALERT, ORIENTED X 3, MILD ACUTE DISTRESS, WELL DEVELOPED, NOURISHED. HEAD AND FACE: NON-TRAUMATIC. EYES: PERRL, PINK CONJUNCTIVAS, EYELID NO TRAUMA, ANTERIOR CHAMBER WITH ARCUS SENILIS. EARS: PINNAS INTACT AND NO SIGNS OF TRAUMA OR ERYTHEMA EAR CANALS CLEAR AND NO DISCHARGE TM NO ERYTHEMA NOSE: NO DISCHARGE, NO BLEEDING. OROPHARYNX: MOUTH NORMAL, TONGUE PINK, PHARYNX CLEAR,NO ERYTHEMA, TONSILS NO EXUDATES, NO ABSCESSES NOTED, MUCOUS MEMBRANE MOIST NECK: SUPPLE, NON-TENDER, NO THYROMEGALY, NO MASSES, NO JVD, NO BRUITS BREAST:DEFERRED CHEST:NO TENDERNESS, NO CREPITUS, NO PARADOXICAL MOVEMENT, NO RETRACTIONS LUNGS:CLEAR, WELL-VENTILATED, SYMMETRIC, NO RALES, NO WHEEZING, NO RHONCHI, NO STRIDOR, GOOD BREATH SOUNDS BILATERALLY HEART: REGULAR RATE, REGULAR RHYTHM, NO MURMUR, NO GALLOPS VASCULAR: NO PERIPHERAL EDEMA, ABDOMEN: SOFT, POSITIVE BOWEL SOUNDS, NONDISTENDED, NO GUARDING, NONTENDER, NO REBOUND, NO MASSES NO HEPATOMEGALY, NO SPLENOMEGALY, NO SEN'S SIGN, NO HERNIAS. RECTAL: DEFERRED GENITAL: DEFERRED HERRMANN CATHETER IN PLAC. MINIMAL AMOUNTS OF URINE IN BAG. BLADDER DISTENDED TWO TO +ABOVE SYMPHYSIS PUBIS. NEUROLOGICAL: NORMAL SPEECH, MOTOR FUNCTION INTACT, SENSORY FUNCTION INTACT MUSCULOSKELETAL: NECK NONTENDER, FULL RANGE OF MOTION, BACK NONTENDER, FULL RANGE OF MOTION, EXTREMITIES: NONTENDER, FULL RANGE OF MOTION SKIN: COLOR PINK, DRY, NO TURGOR, NO RASH, NO LACERATIONS, NO ABRASIONS, NO CONTUSIONS. LYMPHATIC: DEFERRED Results (Laboratory/Radiology) Laboratory/Radiology Laboratory Tests Test 08/02/25 00:00 08/02/25 16:17 08/02/25 16:58 Sodium Level 143 mmol/L (136-145) Potassium Level 4.0 mmol/L (3.5-5.1) Chloride Level 104 mmol/L (101-111) Carbon Dioxide Level 30 mmol/L (21-32) Blood Urea Nitrogen 16 mg/dL (7-18) Creatinine 0.7 mg/dL (0.5-1.3) Glomerular Filtration Rate Calc 92 mL/min (>90) Random Glucose 105 mg/dL (70-105) Total Calcium 9.0 mg/dL (8.5-10.1) White Blood Count 7.7 K/uL (4.8-10.8) Red Blood Count 4.56 MIL/uL (4.50-6.20) Hemoglobin 14.0 g/dL (14.0-18.0) Hematocrit 42.6 % (42-54) Mean Corpuscular Volume 93.4 fL (79-99) Mean Corpuscular Hemoglobin 30.7 pg (27.0-33.0) Mean Corpuscular Hemoglobin Concent 32.9 g/dL (32.0-36.0) Red Cell Distribution Width 13.6 % (11.0-15.5) Platelet Count 338 K/uL (130-400) Mean Platelet Volume 9.9 fL (7.5-10.5) Immature Granulocyte % (Auto) 0.4 % (0-1) Neutrophils (%) (Auto) 79.1 % (40.0-77.0) H Lymphocytes (%) (Auto) 12.4 % (21.0-51.0) L Monocytes (%) (Auto) 5.8 % (3.0-13.0) Eosinophils (%) (Auto) 1.8 % (0.0-8.0) Basophils (%) (Auto) 0.5 % (0.0-5.0) Neutrophils # (Auto) 6.1 K/uL (1.8-7.7) Lymphocytes # (Auto) 1.0 K/uL (1.0-4.8) Monocytes # (Auto) 0.5 K/uL (0.1-1.0) Eosinophils # (Auto) 0.14 K/uL (0.00-0.70) Basophils # (Auto) 0.04 K/uL (0.00-0.20) Absolute Immature Granulocyte (auto 0.03 K/uL (0-1) Nucleated Red Blood Cells 0.0 % (0.0-0.19) Urine Color YELLOW (YELLOW) Urine Appearance CLOUDY (CLEAR) H Urine pH 5.0 (5.0-8.0) Urine Specific [place] 1.016 (1.001-1.031) Urine Protein NEGATIVE mg/dL (NEGATIVE) Urine Glucose (UA) NEGATIVE mg/dL (NEGATIVE) Urine Ketones NEGATIVE mg/dL (NEGATIVE) Urine Occult Blood MODERATE (NEGATIVE) H Urine Nitrate 2+ (NEGATIVE) H Urine Bilirubin NEGATIVE mg/dL (NEGATIVE) Urine Urobilinogen 0.2 mg/dL (0.2-1.0) Urine Leukocyte Esterase 500 Tatiana/uL (NEGATIVE) H Urine RBC 51-100 /HPF (0-1) H Urine WBC 26-50 /HPF (0-1) H Urine WBC Clumps (Auto) FEW /HPF (0-1) Urine Bacteria MOD /HPF (None Seen) Urine Yeast RARE /HPF (None Seen) Labs Reviewed?: Yes ED Course ED Course Orders Procedure Category Date Status Time Nurse Driven Herrmann YING 08/02/25 In Process Removal Pro 16:07 Cbc With Differential LAB 08/02/25 Complete 16:07 Urinalysis Profile LAB 08/02/25 Complete 16:07 Basic Metabolic Panel LAB 08/02/25 Complete 16:07 Culture Urine MICHELLE 08/02/25 In Process 17:05 Amox/Clav 875/125mg PHA 08/02/25 Verified Tab (Augmentin 875-1 18:30 Vital Signs Date Time Temp Pulse Resp B/P (MAP) Pulse Ox O2 Delivery O2 Flow Rate FiO2 08/02/25 17:56 83 12 156/83 97 Room Air* 0 21 08/02/25 15:50 97.2 92 16 149/82 97 Room Air 1810/BLADDER NO LONGER PALPABLE. HERRMANN CATHETER IS DRAINING URINE. AUGMENTIN WAS GIVEN FOR [place] AND PATIENT WILL BE DISCHARGED HOMES TO FOLLOW UP WITH SOON POSSIBLE Medical Decision Making MDM MEDICAL DECISION-MAKING BASED ON HERRMANN CATHETER EXCHANGE FOR OCCLUDED HERRMANN HERRMANN CATHETER NOW DRAINING. BASIC LABS DRAWN TO CHECK RENAL FUNCTION FOR INFECTION ANEMIA AND URINE. PATIENT HAS A URINARY TRACT INFECTION GIVEN AUGMENTIN 875 DISCHARGED HOME WITH A PRESCRIPTION FOR SAME REFERRED TO UROLOGIST/DR GUTIÉRREZ DX & DISP Disposition: Discharge Departure Impression: Primary Impression: Obstructed Herrmann catheter Additional Impressions: Acute cystitis, BPH without urinary obstruction Condition: Stable Scripts Tamsulosin HCl (Flomax) 0.4 Mg Cap.er.24h 0.4 MG PO DAILY for 30 Days, #30 CAPSULE. Prov: LAVERNE MABRY NP 08/02/25 Amoxicillin/Potassium Clav (Amox Tr-K Clv 875-125 mg Tab) 875 Mg-125 Mg Tablet 1 EACH PO BID for 7 Days, #14 TAB 0 Refills Prov: LAVERNE MABRY NP 08/02/25 Additional Instructions: FOLLOW-UP WITH PRIMARY CARE PROVIDER IN 1 TO 2 DAYS. TAKE MEDICATIONS DIRECTED HERE IN THE EMERGENCY ROOM. OKAY TO CONTINUE HOME MEDICATIONS UNLESS OTHERWISE DISCUSSED DURING YOUR VISIT IN THE EMERGENCY ROOM TODAY. RETURN TO YOUR NEAREST EMERGENCY ROOM IF SYMPTOMS WORSEN OR IF THERE IS NO IMPROVEMENT. CALL 911 IF YOU NEED IMMEDIATE ASSISTANCE. TAKE TYLENOL OR MOTRIN [id number] NEEDED AND IF NO CONTRAINDICATIONS ARE PRESENT. INCREASE ORAL HYDRATION. A WOUND CULTURE OR URINE CULTURE WAS ORDERED HERE IN THE EMERGENCY ROOM DEPARTMENT PLEASE FOLLOW-UP WITH PRIMARY CARE PROVIDER AND ADVISE THEM TO GET REPEAT PORTS FROM OUR FACILITY. IF YOU HAD ANY MATTHEW WRAP/SPLINTS THAT WERE APPLIED HERE, PLEASE DO NOT REMOVE THEM UNTIL YOU SEE YOUR PRIMARY CARE OR SPECIALTY. TAKE AUGMENTIN DIRECTED UNTIL GONE. TAKE FLOMAX DIRECTED DAILY. CALL FOR AN APPOINTMENT IN THE NEXT 1-2 DAYS. INCREASE YOUR WATER INTAKE. Referrals: OCHOA QUINTERO (PCP) IVORY GUTIÉRREZ MD Time of Disposition: 18:15 I have reviewed the case, and I agree with, Diagnosis and Plan LAVERNE MABRY NP Aug 02, 2025 16:09
--- NOTE | 2025-08-02 16:15 | NUR ---
PT AT THE BED
[2025-08-02 16:22] LABS: IMMATURE GRANULOCYTE ABSOLUTE 0.03 K/uL (0-1); NUCLEATED RED BLOOD CELLS 0.0 % (0.0-0.19); PLATELET COUNT (AUTO) 338 K/uL (130-400); RED BLOOD CELL COUNT(AUTO) 4.56 MIL/uL (4.50-6.20); RED CELL DISTRIBUTION WIDTH 13.6 % (11.0-15.5); WHITE BLOOD COUNT (AUTO) 7.7 K/uL (4.8-10.8)
[2025-08-02 16:34] LABS: CREATININE 0.7 mg/dL (0.5-1.3); GLOMERULAR FILTR. RATE CALC 92.0 mL/min (>90); GLUCOSE,RANDOM 105.0 mg/dL (70-105); SODIUM SERUM 143.0 mmol/L (136-145); UREA NITROGEN, BLOOD 16.0 mg/dL (7-18)
[2025-08-02 17:04] LABS: ADD UA MICROSCOPIC YES; APPEARANCE,URINE CLOUDY (CLEAR); GLUCOSE, URINE (UA) NEGATIVE (NEGATIVE); LEUKOCYTE ESTERASE ,URINE 500 Leu/uL (NEGATIVE); NITRATE,URINE 2+ (NEGATIVE); OCCULT BLOOD,URINE MODERATE (NEGATIVE)
[2025-08-02 17:08] LABS: WBC CLUMP FEW /HPF (0-1); YEAST,URINE BUDDING RARE /HPF (None Seen)
[2025-08-02 17:56] VITALS: BP 156/83; PULSE 83; RESP 12; O2SAT 97
[2025-08-02] MEDS ORDERED: AMOX1TAB16 PO (18:17)
[2025-08-02] MEDS ORDERED: TAMS-55 PO (18:17)
[2025-08-02] MEDS: AMOX/CLAV 875/125MG TAB PO ONE (18:38)
== END 2025-08-02 18:50 | disposition home or self-care (01) ==
LOC: EDH 15:48
DX: T83.098A Other mechanical complication of other urinary catheter, initial encounter (principal); N30.00 Acute cystitis without hematuria; N40.1 Benign prostatic hyperplasia with lower urinary tract symptoms; E78.00 Pure hypercholesterolemia, unspecified; Z79.82 Long term (current) use of aspirin; Z88.1 Allergy status to other antibiotic agents; Y73.8 Miscellaneous gastroenterology and urology devices associated with adverse incidents, not elsewhere classified
CPT/HCPCS: 36415; 51702; 80048; 81001; 85025; 87086; 87186; 99284

== ENCOUNTER 2025-10-21 19:37 | Emergency (ER) | payer OTHER ==
[~2025-10-21] VITALS: Ht 165.1 cm; Wt 61.2 kg
[~2025-10-21 19:37] MED LIST changes: +AMLO5TAB4 PO; +ASPIRIN PO; -LEVO-70 PO
[2025-10-21 19:38] VITALS: BP 161/91; PULSE 105; RESP 20; TEMP 98
--- NOTE | 2025-10-21 20:04 | ERN ---
ED Note History of Present Illness Stated Complaint: HERRMANN CATH, " CLOGGED" Chief Complaint: Urinary Catheter Problems Time Seen by MD: 19:57 Dictation: Patient is a 80-year-old male with a past medical history of cancer, chronic Herrmann in place. Stated that today he empties his Herrmann bag in the morning and since he has not seen output in the bag, he started having suprapubic pain. Allergies: Coded Allergies: tetracycline (Verified Allergy, Unknown, 03/28/21) Home Meds Active Scripts Cephalexin Monohydrate (Keflex) 500 Mg Cap, 1 CAP PO QID for 10 Days, #40 CAP 0 Refills Prov:DAMIEN RACHEL MD 10/21/25 Tamsulosin HCl (Flomax) 0.4 Mg Cap.er.24h, 0.4 MG PO HS for 30 Days, #30 CAPSULE.DR 2 Refills Prov:LANCE CATHERINE MD 09/07/25 Amlodipine Besylate (Norvasc 5Mg Tab) 5 Mg Tablet, 5 MG PO DAILY for 30 Days, #30 TAB 2 Refills Prov:LANCE CATHERINE MD 09/07/25 Tamsulosin HCl (Flomax) 0.4 Mg Cap.er.24h, 0.4 MG PO DAILY for 30 Days, #30 CAPSULE.DR Prov:LAVERNE MABRY 08/02/25 Tamsulosin HCl (Flomax) 0.4 Mg Cap.er.24h, 1 CAP PO DAILY for 10 Days, #10 CAP 0 Refills Prov:FREDA BERMUDEZ MD 07/13/25 Reported Medications [Aspirin] No Conflict Check, 325 MG PO DAILY 09/04/25 Aspirin (ASPIRIN) 325 Mg Tablet, 325 MG PO DAILY, TAB 07/16/25 Past Medical History Past Medical History: Cancer, High Cholesterol, Prostatitis, Other Additional Past Medical Hx: BPH Surgical History: Other Surgical History Other: RT LEG STENT Review of System Dictation NEGATIVE EXCEPT PER HPI Constitutional: Negative for fever,chills, and weight loss Eyes: Negative for injury, pain,redness, and discharge ENT: Negative for injury,pain or swelling Cardiovascular: denies chest pain, palpitations, and edema Respiratory: Negative for shortness of breath, cough, and wheezing, Abdomen/GI: Negative for abdominal pain, nausea, vomiting, diarrhea, and constipation Back: Negative for injury and pain : Suprapubic pain, oliguria MS/Extremity: Negative for injury and deformity Skin: Negative for rash, and discoloration Neuro: Negative for headache, weakness, numbness, tingling, and seizure Psych: Negative for suicide ideation, homicidal ideation, and hallucinations Initial Vital Sign VS Vital Signs Date Time Temp Pulse Resp B/P (MAP) Pulse Ox O2 Delivery O2 Flow Rate FiO2 10/21/25 19:38 98.1 105 20 161/91 97 Room Air Physical Exam Dictation General: awake, alert, NAD Head/Face: Normocephalic, atraumatic Eyes: PERRL, EOMI, vision at baseline ENT: oral cavity clear, TMs clear, no signs of infection Neck: Trachea midline, supple, no nuchal rigidity Cardiovascular: RRR, normal S1/S2, No MRGs, no JVD Respiratory: CTAB, no respiratory distress, No rales or wheezes Abdomen: Soft , suprapubic tenderness Skin: Warm, dry, normal turgor, no rash MS/Extremity: Pulses equal, no cyanosis, neurovascular intact, FROM Neuro: COAx4, GCS 15, strength 5/5, CN 2-12 intact, normal cerebellar exam, normal gait, Psych: Normal behavior, mood, and affect normal Results (Laboratory/Radiology) Laboratory/Radiology Laboratory Tests Test 10/21/25 20:43 Urine Color YELLOW (YELLOW) Urine Appearance CLOUDY (CLEAR) H Urine pH 5.0 (5.0-8.0) Urine Specific Torrey 1.011 (1.001-1.031) Urine Protein NEGATIVE mg/dL (NEGATIVE) Urine Glucose (UA) NEGATIVE mg/dL (NEGATIVE) Urine Ketones NEGATIVE mg/dL (NEGATIVE) Urine Occult Blood LARGE (NEGATIVE) H Urine Nitrate 2+ (NEGATIVE) H Urine Bilirubin NEGATIVE mg/dL (NEGATIVE) Urine Urobilinogen 0.2 mg/dL (0.2-1.0) Urine Leukocyte Esterase 500 Tatiana/uL (NEGATIVE) H Urine RBC 26-50 /HPF (0-1) H Urine WBC TNTC /HPF (0-1) H Urine Squamous Epithelial Cells RARE /HPF (0-2) Urine Bacteria MOD /HPF (None Seen) ED Course ED Course Orders Procedure Category Date Status Time Urinalysis Profile LAB 10/21/25 Complete 20:27 Nurse Driven Herrmann YING 10/21/25 In Process Removal Pro 20:42 Culture Urine MICHELLE 10/21/25 In Process 20:51 Ceftriaxone 1g Vial PHA 10/21/25 Complete (Rocephine 1g Inj) 21:00 Ceftriaxone 1g Vial PHA 10/21/25 Complete (Rocephine 1g Inj) 21:05 Current Medications Medications (Trade) Dose Ordered Sig/Sally Route PRN Reason Start Time Stop Time Status Last Admin Dose Admin Ceftriaxone Sodium 1 ml @ As Directed STK-MED ONCE .ROUTE 10/21/25 21:05 10/21/25 21:05 DC Ceftriaxone Sodium (ROCEphine 1G INJ) 1 gm ONCE ONCE IM 10/21/25 21:00 10/21/25 21:12 DC 10/21/25 21:19 Vital Signs Date Time Temp Pulse Resp B/P (MAP) Pulse Ox O2 Delivery O2 Flow Rate FiO2 10/21/25 19:38 98.1 105 20 161/91 97 Room Air Medical Decision Making [facility] 80-year-old male with a history of prostate cancer, chronic Herrmann, to the ER complaining of suprapubic tenderness, no output from Herrmann in this afternoon. Herrmann malfunction Urinary retention Plan to review Herrmann, possible change of Herrmann catheter. DX & DISP Disposition: Discharge Departure Impression: Primary Impression: Obstructed Herrmann catheter Additional Impression: UTI (urinary tract infection) Condition: Stable Scripts Cephalexin Monohydrate (Keflex) 500 Mg Cap 1 CAP PO QID for 10 Days, #40 CAP 0 Refills Prov: DAMIEN RACHEL MD 10/21/25 Referrals: OCHOA QUINTERO (PCP) Time of Disposition: 20:49 DAMIEN RACHEL MD Oct 21, 2025 20:04
[2025-10-21 20:50] LABS: APPEARANCE,URINE CLOUDY (CLEAR); GLUCOSE, URINE (UA) NEGATIVE (NEGATIVE); LEUKOCYTE ESTERASE ,URINE 500 Leu/uL (NEGATIVE); NITRATE,URINE 2+ (NEGATIVE); OCCULT BLOOD,URINE LARGE (NEGATIVE)
[2025-10-21 20:51] LABS: ADD UA MICROSCOPIC YES
[2025-10-21 20:58] LABS: SQUAMOUS EPITHELIAL CELL,UR RARE /HPF (0-2)
[2025-10-21] MEDS ORDERED: CEPH500B PO (21:03)
[2025-10-21] MEDS: cefTRIAXone 1G VIAL 1 GM ONE (21:07)
== END 2025-10-21 21:26 | disposition home or self-care (01) ==
LOC: EDH 19:37
DX: T83.091A Other mechanical complication of indwelling urethral catheter, initial encounter (principal); N39.0 Urinary tract infection, site not specified; R33.9 Retention of urine, unspecified; E78.00 Pure hypercholesterolemia, unspecified; Z88.1 Allergy status to other antibiotic agents; Z79.899 Other long term (current) drug therapy; Z79.82 Long term (current) use of aspirin; Y73.8 Miscellaneous gastroenterology and urology devices associated with adverse incidents, not elsewhere classified
CPT/HCPCS: 99284; 87086 ×2; 87186; 81001; 51702; 96372; J0696